=== PATIENT | female | born 1960 | race Hispanic/Latino ===

== ENCOUNTER 2018-04-15 19:52 | Inpatient (IN) | payer MEDICAID ==
--- NOTE | 2018-04-15 20:35 | ED PDOC ---
Arrival/HPI - General Chief Complaint: Shortness Of Breath Time Seen by Provider: 04/15/18 19:55 Historian: Patient - History of Present Illness Narrative History of Present Illness (Text): 04/15/18 20:32 57 year old female, with no significant past medical history, presents via EMS from [facility] ER, with shortness of breath. Patient informs having difficulty breathing. Patient states she also has fever, chills, and coughing. According to report, patient was hypoxic at [facility]. Patient denies any headache, dizziness, abdominal pain, nausea, vomiting, diarrhea, back pain, neck pain, urinary/bowel changes, or any other complaint. Time/Duration: Prior to Arrival Symptom Onset: Gradual Past Medical History - Provider Review Nursing Documentation Reviewed: Yes - Infectious Disease Hx of Infectious Diseases: None - Tetanus Immunization Tetanus Immunization: Up to Date - Cardiac Hx Cardiac Disorders: No - Pulmonary Hx Chronic Obstructive Pulmonary Disease (COPD): Yes - Psychiatric Hx Depression: No Hx Emotional Abuse: No Hx Physical Abuse: No Hx Substance Use: No - Past Surgical History Past Surgical History: No Previous - Suicidal Assessment Feels Threatened In Home Enviroment: No Family/Social History - Physician Review Nursing Documentation Reviewed: Yes Family/Social History: No Known Family HX Smoking Status: Never Smoked Hx Alcohol Use: No Hx Substance Use: No Allergies/Home Meds Allergies/Adverse Reactions: Allergies No Known Allergies Allergy (Verified 04/17/16 16:21) Home Medications: Home Meds Medication Instructions Recorded Confirmed Montelukast [Singulair] 10 mg PO DAILY 07/12/13 04/17/16 PARoxetine [Paxil] 10 mg PO ACBHS 07/12/13 04/17/16 Beclomethasone Dipropionate [Qvar 1 puff IH BID 04/17/16 04/17/16 40 mcg] Fexofenadine/Pseudoephedrine 1 each PO DAILY 04/17/16 04/17/16 [Kourtney-D 12 Hour Tablet] Review of Systems - Physician Review All systems were reviewed & negative as marked: Yes - Review of Systems Constitutional: Fevers, Night Sweats Respiratory: SOB, Cough Gastrointestinal: absent: Abdominal Pain, Diarrhea, Nausea, Vomiting Genitourinary Female: absent: Urine Output Changes Musculoskeletal: absent: Back Pain, Neck Pain Neurological: absent: Headache, Dizziness Physical Exam Vital Signs Reviewed: Yes Vital Signs Temp Pulse Resp BP Pulse Ox 04/15/18 20:15 99.1 F 85 18 115/80 100 Temperature: Afebrile Blood Pressure: Normal Pulse: Regular Respiratory Rate: Normal Appearance: Positive for: Well-Appearing, Non-Toxic, Comfortable Pain Distress: None Mental Status: Positive for: Alert and Oriented X 3 - Systems Exam Head: Present: Atraumatic, Normocephalic Pupils: Present: PERRL Extroacular Muscles: Present: EOMI Conjunctiva: Present: Normal Mouth: Present: Moist Mucous Membranes Neck: Present: Normal Range of Motion Respiratory/Chest: Present: Clear to Auscultation, Good Air Exchange. No: Respiratory Distress, Accessory Muscle Use Cardiovascular: Present: Regular Rate and Rhythm, Normal S1, S2. No: Murmurs Abdomen: No: Tenderness, Distention, Peritoneal Signs Back: Present: Normal Inspection Upper Extremity: Present: Normal Inspection. No: Cyanosis, Edema Lower Extremity: Present: Normal Inspection. No: Edema Neurological: Present: GCS=15, CN II-XII Intact, Speech Normal Skin: Present: Warm, Dry, Normal Color. No: Rashes Psychiatric: Present: Alert, Oriented x 3, Normal Insight, Normal Concentration Medical Decision Making ED Course and Treatment: 04/15/18 20:38 Impression: 57 year old female presents with shortness of breath Plan: -- EKG -- Labs -- Rapid Flu -- Reassess and disposition Prior Visits: Notes and results from previous visits were reviewed. case d/w dr hoffman will admit for pneumonia - EKG Interpretation EKG Interpretation (Text): 04/16/18 03:59 nsr rate 96 nssts changes - Scribe Statement The provider has reviewed the documentation as recorded by the Scribmack Womack Provider Scribe Attestation: All medical record entries made by the Scribe were at my direction and personally dictated by me. I have reviewed the chart and agree that the record accurately reflects my personal performance of the history, physical exam, medical decision making, and the department course for this patient. I have also personally directed, reviewed, and agree with the discharge instructions and disposition. Disposition/Present on Arrival - Present on Arrival Any Indicators Present on Arrival: No History of DVT/PE: No History of Uncontrolled Diabetes: No Urinary Catheter: No History of Decub. Ulcer: No History Surgical Site Infection Following: None - Disposition Have Diagnosis and Disposition been Completed?: Yes Diagnosis: Pneumonia Disposition: HOSPITALIZED Disposition Time: 00:30 Condition: FAIR
[2018-04-15 21:39] LABS: BASO # 0.01 K/mm3 (0.0-2.0); BASO % 0.1 % (0.0-3.0); GRAN # 8.84 (1.4-6.5); GRAN % 92.3 % (50.0-68.0); HEMOGLOBIN 13.4 g/dL (12.0-16.0); LYMPH # 0.5 (1.2-3.4); LYMPH % 5.6 % (22.0-35.0); MEAN CORPUSCULAR HEMOGLOBIN 29.7 pg (25.0-35.0); MEAN PLATELET VOLUME 8.2 fl (7.0-11.0); MONO # 0.2 (0.1-0.6); PLATELET COUNT 346 10^3/uL (120.0-450.0); RBC 4.51 10^6/uL (3.5-6.1); RED CELL DISTRIBUTION WIDTH 13.2 % (11.5-14.5); VENOUS BLOOD GAS BASE EXCESS 2.2 mmol/L (0.0-2.0); VENOUS BLOOD GAS PO2 62 mm/Hg (30-55); VENOUS BLOOD PH 7.41 (7.32-7.43); WHITE BLOOD COUNT 9.6 10^3/ul (4.5-11.0)
[2018-04-15 21:47] LABS: INR 1.21; PARTIAL THROMBOPLASTIN TIME 24.8 Seconds (25.1-36.5); PROTHROMBIN TIME 13.9 SECONDS (9.4-12.5)
[2018-04-15 21:48] LABS: BLOOD UREA NITROGEN 6 mg/dL (7-21); GFR NON-AFRICAN AMERICAN > 60
[2018-04-15 22:00] LABS: B-TYPE NATRIURETIC PEPTIDE 36.2 pg/mL (0-450); TROPONIN I < 0.01 ng/mL
[2018-04-15 22:09] LABS: ANISOCYTOSIS SLIGHT; LYMPHOCYTE 6 % (22.0-35.0); MONOCYTE 3 % (1.0-6.0); NEUTROPHIL 91 % (50.0-70.0); PLATELET ESTIMATE NORMAL (NORMAL)
[2018-04-15] MEDS ORDERED: Iodixanol 320 MG/ML 100 ML BOTTLE IV ONE (22:31)
[2018-04-15] MEDS ORDERED: Azithromycin 500MG/NS 250ml 500 MG/250 ML BAG IVPB STA (23:51)
[2018-04-15] MEDS ORDERED: Piperacillin/Tazobact 3.375 gm 100 ML IVPB STA (23:52)
[2018-04-16] MEDS: Sodium Chloride 0.9% 1,000 ML IV SCH ×2 (00:19→16:43)
[2018-04-16 00:43] LABS: ARTERIAL BLOOD GAS HCO3 26.9 mmol/L (21-28); ARTERIAL BLOOD GAS O2 SAT 95.5 % (95-98); ARTERIAL BLOOD GAS PCO2 37 mm/Hg (35-45); ARTERIAL BLOOD GAS PH 7.47 (7.35-7.45)
[2018-04-16] MEDS: Albuterol-Ipratrop 3 mg / 0.5 (3 ml) UD IH SCH ×4 (01:54→20:32)
[2018-04-16 03:01] VITALS: BMI 30.2
--- NOTE | 2018-04-16 08:11 | CT ---
Date of service: 04/15/2018 PROCEDURE: CT Chest with contrast (Pulmonary Angiogram) HISTORY: elevated dimer COMPARISON: None available. TECHNIQUE: Axial computed tomography images were obtained of the chest in the pulmonary arterial phase of enhancement. Coronal and sagittal reformatted images were created and reviewed. Intravenous contrast dose: 75 cc Visipaque 320 Mean Hounsfield value in the main pulmonary artery: 55.88 Radiation dose: Total exam DLP = 495.12 mGy-cm. This CT exam was performed using one or more of the following dose reduction techniques: Automated exposure control, adjustment of the mA and/or kV according to patient size, and/or use of iterative reconstruction technique. FINDINGS: PULMONARY ARTERIES: Unremarkable. No pulmonary embolism. Dilated main pulmonary artery 3.5 cm consistent with pulmonary arterial hypertension. AORTA: No acute findings. No thoracic aortic aneurysm. LUNGS: Left lower lobe infiltrate/atelectasis PLEURAL SPACES: Unremarkable. No effusion or pneumothorax. HEART: Cardiomegaly without pericardial effusion. Increased interstitial markings and pulmonary vascular congestion. LYMPH NODES: No lymphadenopathy. BONES, CHEST WALL: Unremarkable. No fracture or destructive lesion OTHER FINDINGS: Unremarkable. IMPRESSION: Unremarkable CT pulmonary angiogram. No pulmonary embolus. Cardiomegaly/mild CHF Concordant results (preliminary interpretation) provided by [facility]. Procedure Completed: 23:07 Preliminary Report: Dictated and Authenticated: 23:33. Final Interpretation: 08:08. April 16, 2018
--- NOTE | 2018-04-16 09:11 | CARD ---
APPROVED REPORT Date of service: 04/15/2018 EKG Measurement Heart [id number] <Conclusion> Normal sinus rhythm Possible Left atrial enlargement Somatic Tremors.
[2018-04-16] MEDS ORDERED: MethylPREDNISolone 40 mg Vial IV SCH (10:00)
[2018-04-16] MEDS: cefTRIAXone 1 GM/100 ML BAG IVPB SCH (10:06)
[2018-04-16] MEDS: MethylPREDNISolone 40 mg Vial IV SCH ×2 (17:06→21:22)
[2018-04-16] MEDS: Azithromycin 500MG/NS 250ml 500 MG/250 ML BAG IVPB SCH (17:06)
[2018-04-16] MEDS: Promethazine/Cod 6.25mg-10mg/5ml Syr UD PO PRN ×2 (17:07→21:22)
--- NOTE | 2018-04-16 17:45 | CP.PCM.CON ---
<Michel Topete - Last Filed: 04/16/18 17:42> History of Present Illness - History of Present Illness History of Present Illness: PGY-4 GI Fellow Consult Note Pt is a 57 yo WF with possible h/o asthma who was admitted for shortness of breath/hypoxia. She states that she was recent treated with antibiotics for pneumonia and has had some loose brown bowel movements. She states that she o ccasionally has some diarrhea when she is anxious, but that seemed more noticeable recently after antibiotics. She also noted some red blood on toilet paper when wiping. Denied any blood in stool, melena, abd pain, n/v, fevers, chills, weight loss. No prior / 12 point ROS negative other than stated above MHx: See above SurgHx: None Meds: None daily FamHx: Denied GI probs SocHx: neg x3 All: NKDA Past Patient History - Infectious Disease Hx of Infectious Diseases: None - Tetanus Immunizations Tetanus Immunization: Up to Date - Past Social History Smoking Status: Never Smoked - CARDIAC Hx Cardiac Disorders: No - PULMONARY Hx Chronic Obstructive Pulmonary Disease (COPD): Yes - ENDOCRINE/METABOLIC Hx Endocrine Disorders: No - HEMATOLOGICAL/ONCOLOGICAL Hx Blood Disorders: No - MUSCULOSKELETAL/RHEUMATOLOGICAL Hx Falls: No - PSYCHIATRIC Hx Depression: No Hx Emotional Abuse: No Hx Physical Abuse: No Hx Substance Use: No - SURGICAL HISTORY Hx Surgeries: No Meds Allergies/Adverse Reactions: Allergies Allergy/AdvReac Type Severity Reaction Status Date / Time No Known Allergies Allergy Verified 04/17/16 16:21 - Medications Medications: Current Medications Acetaminophen (Tylenol 325mg Tab) 650 mg PO Q6H PRN PRN Reason: Fever >100.4 F Albuterol/Ipratropium (Duoneb 3 Mg/0.5 Mg (3 Ml) Ud) 3 ml IH [id number] [facility] Last Admin: 04/16/18 14:30 Dose: 3 ml Alprazolam (Xanax) 0.25 mg PO BID PRN; Protocol PRN Reason: Anxiety Stop: 04/23/18 18:01 Ceftriaxone Sodium (Rocephin 1 Gram Ivpb) 1 gm in 100 mls @ 100 mls/hr IVPB DAILY [facility] Last Admin: 04/16/18 10:06 Dose: 100 mls/hr Azithromycin (Zithromax 500mg In Ns) 500 mg in 250 mls @ 167 mls/hr IVPB DAILY [facility] Last Admin: 04/16/18 17:06 Dose: 167 mls/hr Methylprednisolone (Solu-Medrol) 40 mg IV Q8 [facility] Last Admin: 04/16/18 17:06 Dose: 40 mg Montelukast Sodium (Singulair) 10 mg PO DAILY [facility] Last Admin: 04/16/18 10:06 Dose: 10 mg Pantoprazole Sodium (Protonix Ec Tab) 40 mg PO ACB [facility] Paroxetine HCl (Paxil) 20 mg PO HS [facility] Promethazine HCl/Codeine (Phenergan/Codeine Oral Syrup) 5 ml PO Q4H PRN PRN Reason: Cough and congestion Last Admin: 04/16/18 17:07 Dose: 5 ml Physical Exam - Constitutional Appears: Well, Non-toxic, No Acute Distress - Head Exam Head Exam: ATRAUMATIC, NORMAL INSPECTION - Eye Exam Eye Exam: EOMI. absent: Conjunctival injection, Scleral icterus - ENT Exam ENT Exam: Mucous Membranes Moist, Normal External Ear Exam. absent: Mucous Membranes Dry - Respiratory Exam Respiratory Exam: Clear to Auscultation Bilateral, NORMAL BREATHING PATTERN. absent: Accessory Muscle Use - Cardiovascular Exam Cardiovascular Exam: REGULAR RHYTHM, RRR - GI/Abdominal Exam GI & Abdominal Exam: Normal Bowel Sounds, Soft. absent: Bruit, Diminished Bowel Sounds, Distended, Firm, Guarding, Hernia, Hyperactive Bowel Sounds, Hypoactive Bowel Sounds, Organomegaly, Pulsatile Mass, Rebound, Rigid, Tenderness - Rectal Exam Rectal Exam: Deferred - Extremities Exam Extremities exam: Positive for: normal inspection. Negative for: pedal edema - Neurological Exam Neurological exam: Alert, CN II-XII Intact, Oriented x3 - Psychiatric Exam Psychiatric exam: Normal Affect, Normal Mood - Skin Skin Exam: Normal Color, Warm Results - Vital Signs Recent Vital Signs: Last Vital Signs Temp 98.9 F 04/16/18 17:32 Pulse 98 H 04/16/18 17:32 Resp 18 04/16/18 17:32 BP 132/84 04/16/18 17:32 Pulse Ox 94 L 04/16/18 05:21 - Labs Result Diagrams: 04/15/18 21:00 04/15/18 21:00 Labs: Laboratory Results - last 24 hr 04/15/18 04/15/18 04/15/18 21:00 21:00 21:00 WBC 9.6 RBC 4.51 Hgb 13.4 Hct 40.6 MCV 90.0 MCH 29.7 MCHC 33.0 RDW 13.2 Plt Count 346 MPV 8.2 Gran % 92.3 H Lymph % (Auto) 5.6 L [place] % (Auto) 2.0 Eos % (Auto) 0.0 L Baso % (Auto) 0.1 Gran # 8.84 H Lymph # (Auto) 0.5 L [place] # (Auto) 0.2 Eos # (Auto) 0.0 Baso # (Auto) 0.01 Neutrophils % (Manual) 91 H Lymphocytes % (Manual) 6 L Monocytes % (Manual) 3 Platelet Evaluation Normal Anisocytosis (manual) Slight PT 13.9 H INR 1.21 APTT 24.8 L D-Dimer, Quantitative 507 H pCO2 pO2 HCO3 ABG pH ABG Total CO2 ABG O2 Saturation ABG Base Excess ABG Potassium VBG pH VBG pCO2 VBG HCO3 VBG Total CO2 VBG O2 Sat (Calc) VBG Base Excess VBG Potassium Sodium Chloride Glucose Lactate FiO2 Potassium Carbon Dioxide Anion Gap BUN Creatinine Est GFR ( Amer) Est GFR (Non-Af Amer) Random Glucose Calcium Magnesium Lactate Dehydrogenase Total Creatine Kinase Troponin I NT-Pro-B Natriuret Pep Arterial Blood Potassium Venous Blood Potassium Influenza Typ A,B (EIA) Negative for flu a/b 04/15/18 04/15/18 04/16/18 21:00 21:00 00:30 WBC RBC Hgb Hct MCV MCH MCHC RDW Plt Count MPV Gran % Lymph % (Auto) [place] % (Auto) Eos % (Auto) Baso % (Auto) Gran # Lymph # (Auto) [place] # (Auto) Eos # (Auto) Baso # (Auto) Neutrophils % (Manual) Lymphocytes % (Manual) Monocytes % (Manual) Platelet Evaluation Anisocytosis (manual) PT INR APTT D-Dimer, Quantitative pCO2 37 pO2 62 H 65.0 L HCO3 26.9 ABG pH 7.47 H ABG Total CO2 28.0 ABG O2 Saturation 95.5 ABG Base Excess 3.2 H ABG Potassium 3.2 L VBG pH 7.41 VBG pCO2 43.0 VBG HCO3 27.3 VBG Total CO2 28.6 H VBG O2 Sat (Calc) 93.9 H VBG Base Excess 2.2 H VBG Potassium 3.7 Sodium 137.0 140 140.0 Chloride 102.0 99 106.0 Glucose 215 H 168 H Lactate 3.4 H 1.6 FiO2 21.0 28.0 Potassium 3.8 Carbon Dioxide 27 Anion Gap 17 BUN 6 L Creatinine 0.5 L Est GFR ( Amer) > 60 Est GFR (Non-Af Amer) > 60 Random Glucose 202 H Calcium 9.0 Magnesium 3.1 H Lactate Dehydrogenase 477 Total Creatine Kinase 123 Troponin I < 0.01 NT-Pro-B Natriuret Pep 36.2 Arterial Blood Potassium 3.2 L Venous Blood Potassium 3.7 Influenza Typ A,B (EIA) Assessment & Plan - Assessment and Plan (Free Text) Assessment: 57 yo WF with recent abx use presenting with blood on toilet paper and diarrhea. # Diarrhea: Perhaps IBS-D related given pt reports, but with recent Abx use need to eval for Cdiff # Bloody on toilet paper: No bloody stools. Likely due to hemorrhoids. Rectal exam deferred today, plan to eval tomorrow. Plan: - Check for Cdiff - Supportive care - Rectal exam tomorrow - Colonoscopy likely as outpatient for screening purposes Pt seen and examined with Dr. Rosas; see attestation for further recs/changes <Ankit Rosas V - Last Filed: 04/16/18 23:14> Meds - Medications Medications: Current Medications Acetaminophen (Tylenol 325mg Tab) 650 mg PO Q6H PRN PRN Reason: Fever >100.4 F Albuterol/Ipratropium (Duoneb 3 Mg/0.5 Mg (3 Ml) Ud) 3 ml IH [id number] [facility] Last Admin: 04/16/18 20:32 Dose: 3 ml Alprazolam (Xanax) 0.25 mg PO BID PRN; Protocol PRN Reason: Anxiety Stop: 04/23/18 18:01 Ceftriaxone Sodium (Rocephin 1 Gram Ivpb) 1 gm in 100 mls @ 100 mls/hr IVPB DAILY [facility] Last Admin: 04/16/18 10:06 Dose: 100 mls/hr Azithromycin (Zithromax 500mg In Ns) 500 mg in 250 mls @ 167 mls/hr IVPB DAILY [facility] Last Admin: 04/16/18 17:06 Dose: 167 mls/hr Methylprednisolone (Solu-Medrol) 40 mg IV Q8 [facility] Last Admin: 04/16/18 21:22 Dose: 40 mg Montelukast Sodium (Singulair) 10 mg PO DAILY [facility] Last Admin: 04/16/18 10:06 Dose: 10 mg Pantoprazole Sodium (Protonix Ec Tab) 40 mg PO ACB [facility] Paroxetine HCl (Paxil) 20 mg PO HS [facility] Last Admin: 04/16/18 21:22 Dose: 20 mg Promethazine HCl/Codeine (Phenergan/Codeine Oral Syrup) 5 ml PO Q4H PRN PRN Reason: Cough and congestion Last Admin: 04/16/18 21:22 Dose: 5 ml Results - Vital Signs Recent Vital Signs: Last Vital Signs Temp 98.9 F 04/16/18 17:32 Pulse 93 H 04/16/18 22:00 Resp 18 04/16/18 17:32 BP 132/84 04/16/18 17:32 Pulse Ox 94 L 04/16/18 05:21 - Labs Result Diagrams: 04/15/18 21:00 04/15/18 21:00 Labs: Laboratory Results - last 24 hr 04/16/18 00:30 pCO2 37 pO2 65.0 L HCO3 26.9 ABG pH 7.47 H ABG Total CO2 28.0 ABG O2 Saturation 95.5 ABG Base Excess 3.2 H ABG Potassium 3.2 L Sodium 140.0 Chloride 106.0 Glucose 168 H Lactate 1.6 FiO2 28.0 Arterial Blood Potassium 3.2 L Attending/Attestation - Attestation I have personally seen and examined this patient.: Yes I have fully participated in the care of the patient.: Yes I have reviewed all pertinent clinical information: Yes Notes (Text): This is an addendum to GI consult report dictated by the GI Fellow.The patient was seen and examined earlier. Medical records, lab studies, imagings were reviewed. Last 24 hours events reviewed. Agreed with the above treatment plan as outlined in GI Fellow 's notes with the addition of the following This patient has several episodes of lose bowl movements with small episodes of bleeding per rectum Patient has been on steroids and IV antibiotics Clinically more suggestive of C.diff Requested stooled for C.diff Will start empirically PO flagyl Will discuss with PCP 04/16/18 23:14
--- NOTE | 2018-04-17 00:07 | HP ---
HISTORY OF PRESENT ILLNESS: Patient is a 57-year-old, patient of Dr. Salcedo. Patient states almost 2 weeks ago, she took the flu shot. Since then she has not been feeling well. Patient saw her PMD who thought this is flu, so she was given Tamiflu with no significant relief. Then she went to see doctor second time, who referred her to emergency room for further evaluation. She was found to have infiltrate, so she is being admitted for further treatment. PAST MEDICAL HISTORY: Significant for: 1. Depression. 2. History of asthma. 3. Borderline hypertension. ALLERGIES: SHE IS NOT ALLERGIC TO ANY MEDICATIONS. MEDICATIONS AT HOME: She is on Paxil 10 mg at bedtime. She is on Singulair 10 mg daily. She is taking Sudafed and bacitracin. SOCIAL HISTORY: She is a teacher. She denies smoking, drinking, or alcohol use. REVIEW OF SYSTEMS: Significant for cough, congestion. PHYSICAL EXAMINATION: GENERAL: She is awake, alert, oriented, communicative. VITAL SIGNS: She is afebrile, pulse 96, respirations 18, blood pressure 139/81. LUNGS: Bilateral expiratory rhonchi. HEART: S1, S2 audible. ABDOMEN: Soft, nontender. No rebound, no guarding. NEUROLOGICAL: She is awake, alert, oriented, communicative, moves all extremities. LABORATORY DATA: WBC is 9.6, hemoglobin 13.4, hematocrit 40.6, platelets of 346. PT 13.9, INR 1.21, D-dimer 507. Chemistry: Sodium 140, potassium 3.8, chloride 99, CO2 of 27, BUN 6, creatinine 0.5, blood sugar of 202, magnesium 3.1. Flu test is negative. CT scan of the chest was done that shows no pulmonary embolism and consistent with pulmonary hypertension. ASSESSMENT: 1. Community-acquired pneumonia. 2. Asthmatic bronchitis. 3. History of depression. 4. Hyperlipidemia. PLAN: We will continue patient on current IV antibiotics, IV steroid, nebulizer treatment, antitussive, and we will resume her usual medication. We will reevaluate patient in a.m. Maribell Stallings MD [facility] # [phone]
[2018-04-17] MEDS: Albuterol-Ipratrop 3 mg / 0.5 (3 ml) UD IH SCH ×4 (01:55→20:04)
[2018-04-17] MEDS: MethylPREDNISolone 40 mg Vial IV SCH ×2 (05:04→21:36)
[2018-04-17] MEDS ORDERED: Pantoprazole 40 mg EC Tab PO SCH (07:30)
--- NOTE | 2018-04-17 07:41 | CP.PCM.PN ---
<Michel Topete - Last Filed: 04/17/18 11:08> Subjective - Date & Time of Evaluation Date of Evaluation: 04/17/18 Time of Evaluation: 09:30 - Subjective Subjective: PGY-4 GI Fellow Prog Note Pt lying in bed when seen this AM. States feeling better. No BMs since yesterday afternoon. 5 point ROS negative other than stated above Objective - Vital Signs/Intake and Output Vital Signs (last 24 hours): Temp Pulse Resp BP Pulse Ox 98.1 F 88 20 144/98 H 95 04/17/18 06:00 04/17/18 06:00 04/17/18 06:00 04/17/18 06:00 04/17/18 06:00 Intake and Output: 04/17/18 04/17/18 06:59 18:59 Intake Total 540 Output Total 300 Balance 240 - Medications Medications: Current Medications Acetaminophen (Tylenol 325mg Tab) 650 mg PO Q6H PRN PRN Reason: Fever >100.4 F Albuterol/Ipratropium (Duoneb 3 Mg/0.5 Mg (3 Ml) Ud) 3 ml IH [id number] [facility] Last Admin: 04/17/18 01:55 Dose: 3 ml Alprazolam (Xanax) 0.25 mg PO BID PRN; Protocol PRN Reason: Anxiety Stop: 04/23/18 18:01 Ceftriaxone Sodium (Rocephin 1 Gram Ivpb) 1 gm in 100 mls @ 100 mls/hr IVPB DAILY [facility] Last Admin: 04/16/18 10:06 Dose: 100 mls/hr Azithromycin (Zithromax 500mg In Ns) 500 mg in 250 mls @ 167 mls/hr IVPB DAILY [facility] Last Admin: 04/16/18 17:06 Dose: 167 mls/hr Methylprednisolone (Solu-Medrol) 40 mg IV Q8 [facility] Last Admin: 04/17/18 05:04 Dose: 40 mg Montelukast Sodium (Singulair) 10 mg PO DAILY [facility] Last Admin: 04/16/18 10:06 Dose: 10 mg Pantoprazole Sodium (Protonix Ec Tab) 40 mg PO ACB [facility] Paroxetine HCl (Paxil) 20 mg PO HS [facility] Last Admin: 04/16/18 21:22 Dose: 20 mg Promethazine HCl/Codeine (Phenergan/Codeine Oral Syrup) 5 ml PO Q4H PRN PRN Reason: Cough and congestion Last Admin: 04/16/18 21:22 Dose: 5 ml - Labs Labs: 04/15/18 21:00 04/15/18 21:00 PT 13.9 SECONDS (9.4-12.5) H 04/15/18 21:00 INR 1.21 04/15/18 21:00 APTT 24.8 Seconds (25.1-36.5) L 04/15/18 21:00 - Constitutional Appears: Well, Non-toxic, No Acute Distress - Head Exam Head Exam: ATRAUMATIC, NORMAL INSPECTION - Eye Exam Eye Exam: EOMI. absent: Conjunctival injection, Scleral icterus Pupil Exam: NORMAL ACCOMODATION - ENT Exam ENT Exam: Mucous Membranes Moist, Normal External Ear Exam. absent: Mucous Membranes Dry - Respiratory Exam Respiratory Exam: NORMAL BREATHING PATTERN. absent: Accessory Muscle Use - Cardiovascular Exam Cardiovascular Exam: REGULAR RHYTHM, RRR - GI/Abdominal Exam GI & Abdominal Exam: Soft, Normal Bowel Sounds. absent: Bruit, Distended, Firm, Guarding, Rigid, Tenderness, Mass, Organomegaly, Pulsatile Mass, Rebound - Rectal Exam Additional comments: External hemorrhoid at 5 o'clock with dry skin and erythema, no stool in rectal vault Assessment and Plan - Assessment and Plan (Free Text) Assessment: 57 yo WF with recent abx use presenting with blood on toilet paper and diarrhea. # Diarrhea: Perhaps IBS-D related given pt reports, but with recent Abx use need to eval for Cdiff. Given no further BMs since yesterday PM, Cdiff unlikely. Likely anxiety related or perhaps antibiotic associated. # Bloody on toilet paper: No bloody stools. Due to hemorrhoids. Seen on exam. Plan: - Cdiff pending - Supportive care - Probiotic - Colonoscopy as outpatient for screening purposes Pt seen and examined with Dr. Rosas; see attestation for further recs/changes <Ankit Rosas V - Last Filed: 04/17/18 23:03> Objective - Vital Signs/Intake and Output Vital Signs (last 24 hours): Temp Pulse Resp BP Pulse Ox 99.3 F 98 H 19 123/68 90 L 04/17/18 18:00 04/17/18 18:00 04/17/18 18:00 04/17/18 18:00 04/17/18 10:20 Intake and Output: 04/17/18 04/18/18 18:59 06:59 Intake Total 350 Balance 350 - Medications Medications: Current Medications Acetaminophen (Tylenol 325mg Tab) 650 mg PO Q6H PRN PRN Reason: Fever >100.4 F Albuterol/Ipratropium (Duoneb 3 Mg/0.5 Mg (3 Ml) Ud) 3 ml IH [id number] [facility] Last Admin: 04/17/18 20:04 Dose: 3 ml Alprazolam (Xanax) 0.25 mg PO BID PRN; Protocol PRN Reason: Anxiety Stop: 04/23/18 18:01 Azithromycin (Zithromax) 500 mg PO DAILY [facility] Ceftriaxone Sodium (Rocephin 1 Gram Ivpb) 1 gm in 100 mls @ 100 mls/hr IVPB DAILY [facility] Last Admin: 04/17/18 10:20 Dose: 100 mls/hr Methylprednisolone (Solu-Medrol) 30 mg IV Q12 [facility] Last Admin: 04/17/18 21:36 Dose: 30 mg Montelukast Sodium (Singulair) 10 mg PO HS [facility] Pantoprazole Sodium (Protonix Ec Tab) 40 mg PO 0600 [facility] Paroxetine HCl (Paxil) 20 mg PO HS [facility] Last Admin: 04/17/18 21:36 Dose: 20 mg Promethazine HCl/Codeine (Phenergan/Codeine Oral Syrup) 5 ml PO Q4H PRN PRN Reason: Cough and congestion Last Admin: 04/17/18 21:37 Dose: 5 ml - Labs Labs: 04/15/18 21:00 04/15/18 21:00 PT 13.9 SECONDS (9.4-12.5) H 04/15/18 21:00 INR 1.21 04/15/18 21:00 APTT 24.8 Seconds (25.1-36.5) L 04/15/18 21:00 Attending/Attestation - Attestation I have personally seen and examined this patient.: Yes I have fully participated in the care of the patient.: Yes I have reviewed all pertinent clinical information, including history, physical exam and plan: Yes Notes (Text): This is an addendum to GI progress report dictated by the GI Fellow.The patient was seen and examined earlier. Medical records, lab studies, imagings were reviewed. Last 24 hours events reviewed. Agreed with the above treatment plan as outlined in GI Fellow 's notes with the addition of the following No further episodes of bleeding per rectum No bowl movement Rectal examination was done by GI fellow noted findings Stool for c.diff Continue present treatment Followup 04/17/18 23:01
[2018-04-17] MEDS: cefTRIAXone 1 GM/100 ML BAG IVPB SCH (10:20)
[2018-04-17] MEDS: Azithromycin 500MG/NS 250ml 500 MG/250 ML BAG IVPB SCH (11:12)
--- NOTE | 2018-04-17 16:55 | CARD ---
APPROVED REPORT Date of service: 04/17/2018 EXAM: Two-dimensional and M-mode echocardiogram with Doppler and color Doppler. INDICATION Dizziness and Vertigo 2D DIMENSIONS Left Atrium (2D)4.1 (1.6-4.0cm)IVSd1.0 (0.7-1.1cm) LVDd4.1 (3.9-5.9cm)PWd1.2 (0.7-1.1cm) LVDs2.7 (2.5-4.0cm)FS (%) 35.0 % LVEF (%)64.7 (>50%) M-Mode DIMENSIONS Aortic Root3.60 (2.2-3.7cm)Aortic Cusp Exc.1.80 (1.5-2.0cm) Aortic Valve AoV Peak Yrcvoxcw044.0cm/sAoV VTI47.7cmAO Peak GR.17mmHg LVOT Peak Qoejjiqn196.0cm/sLVOT VTI43.20cmAO Mean GR.11mmHg Mitral Valve MV E Vnphkyas21.5cm/sMV A Rvfbpraf24.3cm/sE/A ratio0.8 TDI Lateral E' Peak V10.60cm/sMedial E' Peak V4.78cm/sE/Lateral E'7.5 E/Medial E'16.6 Pulmonary Valve PV Peak Xybxytyy45.5cm/sPV Peak Grad.2mmHg Tricuspid Valve TR Peak Tqjfsnol043lt/sRAP [id number] Peak Gr.27mmHg [id number] LEFT VENTRICLE The left ventricle is normal size. There is borderline to mild concentric left ventricular hypertrophy. Proximal septal thickening is noted with chordal KAMRAN and IHSS physiology,but Resting Peak Gradient 13 mm of Hg. The left ventricular function is normal.EF-65% There is normal LV segmental wall motion. Transmitral Doppler flow pattern is Grade III-reversible restrictive diastolic dysfunction. No left ventricle thrombus noted on this study. There is no ventricular septal defect visualized. There is no left ventricular aneurysm. There is no mass noted in the left ventricle. RIGHT VENTRICLE The right ventricle is normal size. There is normal right ventricular wall thickness. The right ventricular systolic function is normal. ATRIA The left atrium is mildly dilated. The right atrium size is normal. The interatrial septum is intact with no evidence for an atrial septal defect. AORTIC VALVE The aortic valve is thickened but opens well. The aortic valve is mildly sclerotic. There is trace aortic regurgitation. There is no aortic valvular stenosis. There is no aortic valvular vegetation. MITRAL VALVE The mitral valve is thickened but opens well. Mitral regurgitation is mild. There is no mitral valve stenosis. Chordal KAMRAN TRICUSPID VALVE The tricuspid valve leaflets are thickened , but open well. There is mild tricuspid regurgitation.RVSP-37 mmof Hg. There is no tricuspid valve stenosis. There is no tricuspid valve prolapse or vegetation. PULMONIC VALVE The pulmonic valve is mildly thickened. There is mild pulmonic valvular regurgitation. There is no pulmonic valvular stenosis. GREAT VESSELS The aortic root is normal in size. The ascending aorta is normal in size. The pulmonary artery is normal. The IVC is normal in size and collapses >50% with inspiration. PERICARDIAL EFFUSION There is no pleural effusion. atrivial PE <Conclusion> The left ventricle is normal size. There is borderline to mild concentric left ventricular hypertrophy. Proximal septal thickening is noted with chordal KAMRAN and IHSS physiology,but Resting Peak Gradient 13 mm of Hg. The left ventricular function is normal.EF-65% There is trace aortic regurgitation. Mitral regurgitation is mild. There is mild tricuspid regurgitation.RVSP-37 mmof Hg. There is mild pulmonic valvular regurgitation. The IVC is normal in size and collapses >50% with inspiration. atrivial PE No vegetation or thrombus noted.
--- NOTE | 2018-04-17 17:05 | PN ---
DATE: 04/17/2018 SUBJECTIVE: The patient is 57 years old, seen and examined, sitting in chair, seems to be comfortable. Feels little nervous, but still has cough and congestion with wheezing. PHYSICAL EXAMINATION: VITAL SIGNS: Yesterday, she is afebrile, pulse 88, respirations 20, and blood pressure 144/98. LUNGS: Bilateral expiratory rhonchi. HEART: S1 and S2 audible. ABDOMEN: Soft and nontender. No rebound, no guarding. NEUROLOGIC: The patient is awake, alert, oriented, communicative, and ambulatory. ASSESSMENT: 1. Asthma exacerbation. 2. Asthmatic bronchitis. 3. Bronchospasm. 4. Hypertension. 5. Hyperlipidemia. PLAN: We will discontinue telemetry, taper down steroids. Continue nebulizer treatment. Continue on current antibiotics. We will see her response and if she continues to improve, we will possible discharge in a.m. on oral medications. Maribell Stallings MD
[2018-04-17] MEDS: Promethazine/Cod 6.25mg-10mg/5ml Syr UD PO PRN (21:37)
[2018-04-18 01:54] VITALS: RESP 20
[2018-04-18] MEDS ORDERED: Pantoprazole 40 mg EC Tab PO SCH (06:00)
[2018-04-18] MEDS: Albuterol-Ipratrop 3 mg / 0.5 (3 ml) UD IH SCH ×2 (07:52→13:35)
[2018-04-18 08:39] VITALS: BP 141/90; PULSE 77; TEMP 97.7; O2SAT 96
--- NOTE | 2018-04-18 08:47 | CP.PCM.PN ---
Subjective - Date & Time of Evaluation Date of Evaluation: 04/18/18 Objective - Vital Signs/Intake and Output Vital Signs (last 24 hours): Temp Pulse Resp BP Pulse Ox 97.7 F 77 20 141/90 96 04/18/18 08:39 04/18/18 08:39 04/18/18 08:39 04/18/18 08:39 04/18/18 08:39 - Medications Medications: Current Medications Acetaminophen (Tylenol 325mg Tab) 650 mg PO Q6H PRN PRN Reason: Fever >100.4 F Albuterol/Ipratropium (Duoneb 3 Mg/0.5 Mg (3 Ml) Ud) 3 ml IH [id number] [facility] Last Admin: 04/18/18 07:52 Dose: 3 ml Alprazolam (Xanax) 0.25 mg PO BID PRN; Protocol PRN Reason: Anxiety Stop: 04/23/18 18:01 Azithromycin (Zithromax) 500 mg PO DAILY [facility] Ceftriaxone Sodium (Rocephin 1 Gram Ivpb) 1 gm in 100 mls @ 100 mls/hr IVPB DAILY [facility] [place] Last Admin: 04/17/18 10:20 Dose: 100 mls/hr Lactobacillus Acidophilus (Bacid Acidophilus) 1 cap PO BID G[facility]TT Methylprednisolone (Solu-Medrol) 30 mg IV Q12 [facility] [place] Last Admin: 04/17/18 21:36 Dose: 30 mg Montelukast Sodium (Singulair) 10 mg PO HS [facility] [place] Pantoprazole Sodium (Protonix Ec Tab) 40 mg PO 0600 [facility] [place] Last Admin: 04/18/18 06:35 Dose: 40 mg Paroxetine HCl (Paxil) 20 mg PO HS [facility] [place] Last Admin: 04/17/18 21:36 Dose: 20 mg Promethazine HCl/Codeine (Phenergan/Codeine Oral Syrup) 5 ml PO Q4H PRN PRN Reason: Cough and congestion Last Admin: 04/17/18 21:37 Dose: 5 ml - Labs Labs: 04/15/18 21:00 04/15/18 21:00 PT 13.9 SECONDS (9.4-12.5) H 04/15/18 21:00 INR 1.21 04/15/18 21:00 APTT 24.8 Seconds (25.1-36.5) L 10/09/18 21:00 Assessment and Plan - Assessment and Plan (Free Text) Assessment: 57 yo WF with recent abx use presenting with blood on toilet paper and diarrhea. # Diarrhea: Perhaps IBS-D related given pt reports, but with recent Abx use need to eval for Cdiff. Given no further BMs since yesterday PM, Cdiff unlikely. Yaz marilin anxiety related or perhaps antibiotic associated. # Bloody on toilet paper: No bloody stools. Due to hemorrhoids. Seen on exam. Plan: PRELIM NOTE RECS NOT FINAL UNTIL SIGNED AND STAFFED - Cdiff not collected but doubt infection now that symptoms resolved - Supportive care - Probiotic - Colonoscopy as outpatient for screening purposes Pt seen and examined with Dr. Rosas; see attestation for further recs/changes
[2018-04-18] MEDS ORDERED: Lactobacillus Acidophilus 500 MU Cap PO SCH (10:00)
[2018-04-18] MEDS: MethylPREDNISolone 40 mg Vial IV SCH (10:09)
[2018-04-18] MEDS: cefTRIAXone 1 GM/100 ML BAG IVPB SCH (10:09)
--- NOTE | 2018-04-19 11:48 | DS ---
HISTORY OF PRESENT ILLNESS: The patient is 57 years old, seen and examined, still has cough, but no more congestion. No fever, no chills, no nausea or vomiting, no diarrhea. Eating and tolerating. PHYSICAL EXAMINATION: VITAL SIGNS: She is afebrile, pulse 77, respirations 20, and blood pressure 141/90. LUNGS: Bilateral few expiratory rhonchi. HEART: S1 and S2 audible. ABDOMEN: Soft, nontender. No rebound. No guarding. NEUROLOGIC: The patient is awake, alert, oriented, and communicative. LABORATORY DATA: Stool for C. diff is negative. Blood cultures are negative. CT of the chest shows no pulmonary embolism, however, she has mild cardiomegaly. She had echocardiogram done that shows left ventricle normal in size. She has LVH and she has proximal septal thickening and she has ejection fraction of 65%, mitral regurgitation and tricuspid regurgitation. ASSESSMENT: 1. Severe asthmatic bronchitis. 2. Bronchospasm. 3. Obesity. 4. Hypertension. 5. History of depression. PLAN: The patient will resume her medications. She will be given prescription of Levaquin 500 daily. She is given 20 mg of prednisone twice a day for one week. She is given prescription for Phenergan with codeine. She will resume her Singulair, Paxil, Kourtney and she will follow with her PMD. Maribell Stallings MD
== END 2018-04-18 16:03 | disposition home or self-care (01) | DRG 96 ==
LOC: ED 19:52 → ERH 04-16 00:28 → 2RNO 04-16 02:16 → 3RSO 04-17 23:39
PROVIDERS: ADMIT Internal Medicine; ATTEND Internal Medicine
PROC: 3E0F7GC Introduction of Other Therapeutic Substance into Respiratory Tract, Via Natural or Artificial Opening (ICD-10-PCS; principal; 2018-04-16)
DX: J45.901 Unspecified asthma with (acute) exacerbation (principal); R09.02 Hypoxemia; I08.1 Rheumatic disorders of both mitral and tricuspid valves; J44.9 Chronic obstructive pulmonary disease, unspecified; K64.9 Unspecified hemorrhoids; I10 Essential (primary) hypertension; E78.5 Hyperlipidemia, unspecified; F32.9 Major depressive disorder, single episode, unspecified; E66.9 Obesity, unspecified; Z68.30 Body mass index [BMI] 30.0-30.9, adult; Z87.01 Personal history of pneumonia (recurrent)